=== PATIENT | male | born 1970 | race Caucasian/White ===

== ENCOUNTER 2020-11-02 17:19 | Emergency (ER) | payer BC ==
[~2020-11-02] VITALS: Ht 182.9 cm; Wt 178.2 kg
[~2020-11-02 17:19] MED LIST: ATOXIMETIN-B1 CAP PO; NO HOME MEDICATIONS
[2020-11-02 17:23] VITALS: TEMP 98.6
[2020-11-02 17:31] LABS: BASO # 0.1 (0.0-0.2); BASO % 0.6 % (0.0-2.0); EOS # 0.2 (0.0-0.7); EOS % 2.2 % (0-4.0); GRAN # 5.1 (1.4-6.5); GRAN % 58.2 % (42.2-75.2); HEMATOCRIT 40.9 % (42.0-52.0); HEMOGLOBIN 13.3 g/dl (13.5-18.0); LYMPH # 2.6 (1.2-3.4); LYMPH % 29.3 % (20.0-51.0); MEAN CELL VOLUME 78 fl (80.0-100.0); MEAN CORPUSCULAR HEMOGLOBIN 26 pg (27.0-31.0); MEAN CORPUSCULAR HGB CONC 33 g/dl (33.0-37.0); MEAN PLATELET VOLUME 9.4 fl (7.4-10.4); MONO # 0.8 (0.1-0.6); MONO % 9.4 % (1.7-9.3); PLATELET COUNT 245 K/mm3 (130-400); RED BLOOD COUNT 5.22 M/mm3 (4.20-5.60); REDCELL DISTRIBUTION WIDTH-CV 14.5 % (11.5-14.5)
[2020-11-02 17:40] LABS: PROTHROMBIN TIME 11.6 SECONDS (9.7-12.8)
[2020-11-02 17:42] LABS: PARTIAL THROMBOPLASTIN TIME 28.4 SECONDS (26.0-37.0)
[2020-11-02 17:43] LABS: ALANINE AMINOTRANSFERASE 25 U/L (4-49); ALBUMIN 4.3 gm/dL (3.5-5.0); ALKALINE PHOSPHATASE 71 U/L (50-136); ANION GAP 13 mmol/L (7-16); AST,SGOT 32 U/L (15-37); BILIRUBIN,TOTAL 0.2 mg/dL (0.0-1.0); BLOOD UREA NITROGEN 14 mg/dL (9-20); CARBON DIOXIDE 22 mmol/L (22-30); CHLORIDE 103 mmol/L (98-107); CREATININE, serum 0.54 (0.66-1.25); GLUCOSE 142 mg/dL (74-106); POTASSIUM 3.5 mmol/L (3.4-5.0); SODIUM 137 mmol/L (137-145); TOTAL PROTEIN 8.4 gm/dL (6.4-8.2)
[2020-11-02 18:01] LABS: TROPONIN-I < 0.012 ng/mL (0.000-0.035)
[2020-11-02 18:25] VITALS: BP 154/99; PULSE 88
== END 2020-11-02 18:25 | disposition short-term general hospital (02) ==
LOC: COL.ER 17:19
PROVIDERS: Family Medicine
DX: I21.3 ST elevation (STEMI) myocardial infarction of unspecified site (principal); E66.9 Obesity, unspecified; Z68.43 Body mass index [BMI] 50.0-59.9, adult; Z88.6 Allergy status to analgesic agent
CPT/HCPCS: A4314; J1644; J3101